=== PATIENT | male | born 1995 | race Caucasian/White ===

== ENCOUNTER 2017-03-15 13:04 | Emergency (ER) | payer BC ==
[2017-03-15] MEDS ORDERED: predniSONE 20 MG Tab PO ONE (13:05)
[2017-03-15] MEDS ORDERED: diphenhydrAMINE 50 MG/ML SDV IVPUSH ONE (13:12)
[2017-03-15] MEDS ORDERED: methylPREDNISolone Sodium Succinate 125 MG/2 ML SDV IVPUSH STA (13:12)
[2017-03-15] MEDS ORDERED: Take Home: predniSONE 20 MG, 2 Tab Pack PO ONE (13:17)
[2017-03-15 13:20] VITALS: BP 120/53
--- NOTE | 2017-03-15 13:22 | EDM.PDOC ---
ED HPI GENERAL MEDICAL PROBLEM - General Chief Complaint: Allergic Reaction Stated Complaint: ALLERGIC REACTION Time Seen by Provider: 03/15/17 13:05 Source of Information: Reports: Patient History Limitations: Reports: No Limitations - History of Present Illness INITIAL COMMENTS - FREE TEXT/NARRATIVE: Patient is a 21 year old male who presents to the ER with complaints of a rash. He reports that he was prescribed an antibiotic last Friday for a sinus infection. His last dose of sulfa was yesterday morning. He noticed a rash last night on his chest, so he did not take his evening dose of the antibiotic. When he woke up this morning, he reports the rash had spread to his entire body. He reports the rash is itchy. He has tried multiple remedies at home prior to ER presentation. He reports he has been taking Benadryl. He has also tried oatmeal baths, Caladryl cream, and oatmeal body wash. He reports nothing improved his symptoms. Denies any chest pain, shortness of breath, tongue or lip swelling. Does report he has had a cough. Reports his sinus symptoms have improved. No other associated symptoms. Onset Date: 03/14/17 Duration: Getting Worse Location: Reports: Generalized Quality: Reports: Other (rash & itching) Severity: Moderate Improves with: Reports: None Worsens with: Reports: None Associated Symptoms: Reports: No Other Symptoms Treatments RESPIRATORY ASSISTANT: Reports: Home Treatments (Benadryl, oatmeal bath and lotion, caladryl lotion) - Related Data Allergies Allergy/AdvReac Type Severity Reaction Status Date / Time cashew nut Allergy Shortness Verified 03/15/17 13:22 of Breath cephalexin Allergy Cannot Verified 04/01/15 20:46 Remember egg Allergy Indigestion Verified 03/15/17 13:22 Sulfa (Sulfonamide Allergy Hives Verified 03/15/17 14:04 Antibiotics) Home Meds: Home Meds . [No Known Home Meds] 04/01/15 [History] Past Medical History - Past Health History Medical/Surgical History: Denies Medical/Surgical History Social & Family History - Tobacco Use Smoking Status *Q: Never Smoker Second Hand Smoke Exposure: No ED ROS ALLERGIC REACTION - Review of Systems Review Of Systems: See Below Constitutional: Reports: No Symptoms HEENT: Reports: No Symptoms. Denies: Sinus Problem, Throat Pain, Throat Swelling Respiratory: Reports: No Symptoms. Denies: Shortness of Breath, Wheezing, Pleuritic Chest Pain, Cough Cardiovascular: Reports: No Symptoms. Denies: Chest Pain, Dyspnea on Exertion, Lightheadedness, Syncope Endocrine: Reports: No Symptoms GI/Abdominal: Reports: No Symptoms. Denies: Abdominal Pain, Diarrhea, Nausea, Vomiting : Reports: No Symptoms Musculoskeletal: Reports: No Symptoms Skin: Reports: Rash (generalized maculopapular rash), Erythema Neurological: Reports: No Symptoms Psychiatric: Reports: No Symptoms Hematologic/Lymphatic: Reports: No Symptoms Immunologic: Reports: No Symptoms ED EXAM GENERAL NO PERIP PULSE - Physical Exam Exam: See Below Exam Limited By: No Limitations General Appearance: Alert, WD/WN, Mild Distress Eye Exam: Bilateral Eye: EOMI, Normal Fundi, Normal Inspection Ears: Normal External Exam, Normal Canal, Hearing Grossly Normal, Normal TMs Nose: Normal Inspection, Normal Mucosa, No Blood Throat/Mouth: Normal Inspection, Normal Lips, Normal Teeth, Normal Gums, Normal Oropharynx, Normal Voice, No Airway Compromise Head: Atraumatic, Normocephalic Neck: Normal Inspection, Supple, Non-Tender, Full Range of Motion Respiratory/Chest: No Respiratory Distress, Lungs Clear, Normal Breath Sounds, No Accessory Muscle Use, Chest Non-Tender Cardiovascular: Normal Peripheral Pulses, Regular Rate, Rhythm, No Edema, No Gallop, No JVD, No Murmur, No Rub GI/Abdominal: Normal Bowel Sounds, Soft, Non-Tender, No Organomegaly, No Distention, No Abnormal Bruit, No Mass (Male) Exam: Deferred Rectal (Males) Exam: Deferred Back Exam: Normal Inspection, Full Range of Motion, NT Extremities: Normal Inspection, Normal Range of Motion, Non-Tender, No Pedal Edema, Normal Capillary Refill, Other (generalized maculopapular rash & erythema ) Neurological: Alert, Oriented, CN II-XII Intact, Normal Cognition, Normal Gait, Normal Reflexes, No Motor/Sensory Deficits Psychiatric: Normal Affect, Normal Mood Skin Exam: Erythema, Rash (generalized maculopapular rash), Other (pt reports itchy) Lymphatic: No Adenopathy Course - Vital Signs Last Recorded V/S: Last Vital Signs Temp 99.5 F 03/15/17 13:04 Pulse 69 03/15/17 13:04 Resp 16 03/15/17 13:04 BP 120/53 L 03/15/17 13:04 Pulse Ox 100 03/15/17 13:04 - Orders/Labs/Meds Meds: Medications Discontinued Medications Generic Name Dose Route Start Last Admin Trade Name Salbador PRN Reason Stop Dose Admin Diphenhydramine HCl 25 mg 03/15/17 13:12 03/15/17 13:11 Benadryl IVPUSH 03/15/17 13:13 25 mg ONETIME ONE Administration Methylprednisolone Sodium Succinate 125 mg 03/15/17 13:12 03/15/17 13:09 Solu-Medrol IVPUSH 03/15/17 13:13 125 mg NOW STA Administration Prednisone 1 packet 03/15/17 13:17 03/15/17 14:19 Take Home: Prednisone 20 Mg, 2 Tab Pack PO 03/15/17 13:18 1 packet ONETIME ONE Administration Prednisone 40 mg 03/15/17 13:05 Prednisone PO 03/15/17 13:06 .STK-MED ONE Departure - Departure Time of Disposition: 13:25 Disposition: Home, Self-Care 01 Condition: Fair Clinical Impression: Allergic reaction caused by a drug Qualifiers: Encounter type: initial encounter Qualified Code(s): T78.40XA - Allergy, unspecified, initial encounter - Discharge Information Instructions: Anaphylactic Reaction, Bronchospasm, Adult, [id number], Allergies Referrals: Todd Osullivan MD [Primary Care Provider] - Forms: ED Department Discharge Additional Instructions: Take Prednisone 1 tab over the next 2 days. Continue taking over the counter benadryl as needed. Return to ER for worsening symptoms or concerns. Follow up with primary provider if needed. - Problem List & Annotations (1) Allergic reaction caused by a drug SNOMED Code(s): 297775981 Code(s): T78.40XA - ALLERGY, UNSPECIFIED, INITIAL ENCOUNTER Status: Acute Priority: High Onset Date: ~03/14/17 Qualifiers: Encounter type: initial encounter Qualified Code(s): T78.40XA - Allergy, unspecified, initial encounter - Problem List Review Problem List Initiated/Reviewed/Updated: Yes - Assessment/Plan Assessment:: Allergic Reaction Caused by a drug Plan: Stop the sulfa medication. Recommend patient take over the counter Benadryl as needed until the rash resolves. May substitute Zyrtec during daytime hours if Benadyl makes you drowsy. Will send two doses Prednisone with patient. Take one tab tomorrow morning and one tab the following day. Did discuss that it may take 5-7 days for the rash to completely resolve. Return to ER if symptoms worsen or do not improve. Discussed to return immediately if patient develops chest pain, shortness of breath, or tongue or lip swelling.
== END 2017-03-15 14:25 | disposition home or self-care (01) ==
LOC: CC.ED 13:04
DX: R21 Rash and other nonspecific skin eruption (principal); T37.0X5A Adverse effect of sulfonamides, initial encounter; Z88.1 Allergy status to other antibiotic agents; Z91.012 Allergy to eggs; Z91.018 Allergy to other foods
CPT/HCPCS: 96374; 96375; 99282; A9270; J1200; J2930